=== PATIENT | female | born 1980 | race Caucasian/White ===

== ENCOUNTER 2018-08-22 10:51 | Inpatient (IN) ==
[~2018-08-22 10:51] MED LIST: PENICILLIN G POTASSIUM INJ 6,000,000 UNIT in SODIUM CHLORIDE 0.9% 100 ML IV ONE
[2018-08-22] MEDS ORDERED: BUTORPHANOL 2 MG/ML VIAL IV PRN (12:21)
[2018-08-22] MEDS ORDERED: DINOPROSTONE 10 MG VAG.INSERT VAG ONE (12:21)
[2018-08-22] MEDS ORDERED: ONDANSETRON 4 MG/2 ML VIAL IV PRN (12:21)
[2018-08-22] MEDS ORDERED: BUTORPHANOL 1 MG/ML VIAL IV PRN (12:21)
[2018-08-22] MEDS: LACTATED RINGERS 1,000 ML IV SCH ×2 (12:40→22:42)
[2018-08-22 12:53] LABS: Basophils % 0.2 % (0.0-0.8); Eosinophils % 0.2 % (0.00-10.9); Hematocrit 39.8 VOL% (35.7-47.0); Hemoglobin 13.5 GM/DL (12.0-16.0); Immature Granulocytes % 0.8 %; Immature Granulocytes Absolute 0.07 #; Lymphocytes # 1.4 10*3/uL (1.4-4.0); Mean Corpuscular HGB Conc 33.9 GM/DL (32-36); Mean Corpuscular Volume 92.1 FL (87-102); Mean Platelet Volume 10.7 FL (9.6-12.0); Monocytes % 5.8 % (1.7-12.7); Platelet Count 204 T/CUMM (130-400); Red Blood Count 4.32 MC/CUMM (3.8-5.5); Red Cell Distribution Width 12.7 % (9.3-17.3); White Blood Count 9.3 T/CUMM (4-12)
[2018-08-22 13:11] LABS: Alanine Aminotransferase 40 U/L (13-56); Albumin 2.9 G/DL (3.4-5.0); Alkaline Phosphatase 115 U/L (45-117); Aspartate Amino Transferase 37 U/L (0-37); Bilirubin,Total < 0.39 MG/DL (0.2-1.0); Blood Urea Nitrogen 7 MG/DL (7-18); Calcium 9.3 MG/DL (8.5-10.1); Glucose 98 MG/DL (74-106); Osmolality,Calculated 276.4 MOS/KG (273-304); Total Protein 6.7 G/DL (6.4-8.3); Uric Acid 3.2 MG/DL (2.6-6.0)
[2018-08-23] MEDS ORDERED: PENICILLIN G POTASSIUM INJ 6,000,000 UNIT in SODIUM CHLORIDE 0.9% 100 ML IV ONE
[2018-08-23] MEDS ORDERED: OXYTOCIN/LR 20 UNIT/1,000 ML BAG IV SCH (04:30)
[2018-08-23] MEDS: PENICILLIN G POTASSIUM INJ 3,000,000 UNIT in SODIUM CHLORIDE 0.9% 100 ML IV SCH ×4 (05:00→17:44)
[2018-08-23] MEDS: LACTATED RINGERS 1,000 ML IV SCH ×3 (06:42→18:29)
[2018-08-24] MEDS ORDERED: OXYTOCIN/LR 20 UNIT/1,000 ML BAG IV ONE ×3 (05:53→15:45)
[2018-08-24] MEDS: PENICILLIN G POTASSIUM INJ 3,000,000 UNIT in SODIUM CHLORIDE 0.9% 100 ML IV SCH (06:26)
[2018-08-24] MEDS ORDERED: OXYTOCIN/LR 20 UNIT/1,000 ML BAG IV SCH (06:30)
[2018-08-24] MEDS ORDERED: hydrOXYzine HCL 25 MG/1 ML VIAL IM PRN (09:01)
[2018-08-24] MEDS ORDERED: ePHEDrine 50 MG/ML AMP IV PRN (09:01)
[2018-08-24] MEDS ORDERED: diphenhydrAMINE 50 MG/1 ML VIAL IV PRN ×2 (09:01)
[2018-08-24] MEDS ORDERED: NALOXONE 0.4 MG/ML VIAL IV PRN (09:01)
[2018-08-24] MEDS ORDERED: PROMETHAZINE 25 MG/1 ML VIAL IM ONE (09:01)
[2018-08-24] MEDS ORDERED: FAMOTIDINE 20 MG/2 ML VIAL IV ONE (09:03)
[2018-08-24] MEDS ORDERED: CITRIC ACID/SODIUM CITRATE 30 ML UDCUP PO ONE (09:03)
[2018-08-24] MEDS ORDERED: fentaNYL 2 MCG/ROPIV 0.2% EPID 100 ML EPIDURAL SCH (09:30)
[2018-08-24] MEDS ORDERED: LIDOCAINE 1% 50 ML VIAL ONE (11:09)
[2018-08-24] MEDS ORDERED: miSOPROStol 200 MCG TABLET ONE (11:10)
[2018-08-24] MEDS ORDERED: METHYLERGONOVINE 0.2 MG/1 ML AMP ONE (11:10)
[2018-08-24 11:19] LABS: Apearance,Urine Slightly Hazy (Clear); Bacteria,Urine Occasional /HPF (Few); Bilirubin,Urine Negative (Negative); Blood, Urine Negative (Negative); Glucose,Urine (UA) Negative (Negative); Ketones,Urine 80 mg/dL (Negative); Mucus,Urine Moderate /LPF (Occasional); Nitrite,Urine Negative (Negative); Protein,Urine 100 MG/DL; RBC,Urine 1 /HPF (0-4); Squamous Epithelial Cell,Urine Occasional /HPF (0-10); Urine Color Yellow (Yellow); Urine Specific Gravity 1.027 (1.001-1.035); Urine Urobilinogen < 2.0 EU/DL (0.2-1.0); WBC,Urine 1 /HPF (0-6)
[2018-08-24] MEDS ORDERED: hydrALAZINE 20 MG/1 ML VIAL ONE (12:33)
[2018-08-24] MEDS ORDERED: hydrALAZINE 20 MG/1 ML VIAL IV ONE (13:08)
[2018-08-24] MEDS ORDERED: ONDANSETRON 4 MG/2 ML VIAL IV PRN (13:49)
[2018-08-24] MEDS ORDERED: BISACODYL 10 MG SUPP RECTAL PRN (13:49)
[2018-08-24] MEDS ORDERED: MAGNESIUM HYDROXIDE SUSP 30 ML UDCUP PO PRN (13:49)
[2018-08-24] MEDS ORDERED: LACTATED RINGERS 1,000 ML IV SCH (14:00)
[2018-08-24] MEDS: KETOROLAC 15 MG/1 ML VIAL IV SCH ×2 (15:35→20:38)
[2018-08-24] MEDS ORDERED: FAMOTIDINE 20 MG TABLET PO PRN (15:43)
[2018-08-24] MEDS ORDERED: DIPH/TET/ACEL PERT BOOSTER VACCINE 0.5 ML VIAL IM ONE (15:45)
[2018-08-24] MEDS ORDERED: oxyCODONE/ACETAMINOPHEN 5-325 MG TABLET PO PRN ×2 (15:45)
[2018-08-24] MEDS ORDERED: MEASLES/MUMPS/RUBELLA VACCINE 0.5 ML VIAL SUBCUT ONE (15:45)
[2018-08-24] MEDS ORDERED: HYDROCORTISONE 2.5% RECTAL CREAM 30 GM TUBE TOP PRN (15:45)
[2018-08-24] MEDS ORDERED: BENZOCAINE 20%/MENTHOL 0.5% SPRAY 56 GM CAN TOP PRN (15:45)
[2018-08-24] MEDS ORDERED: WITCH HAZEL PADS 100/JAR TOP PRN (15:45)
[2018-08-24] MEDS ORDERED: LANOLIN 50% CREAM 0.3 OZ TUBE TOP PRN (15:45)
[2018-08-24] MEDS: ACETAMINOPHEN 325 MG TABLET PO PRN (19:38)
[2018-08-24] MEDS: DOCUSATE SODIUM 100 MG CAPSULE PO SCH (22:22)
[2018-08-25] MEDS: KETOROLAC 15 MG/1 ML VIAL IV SCH ×2 (04:15→09:00)
[2018-08-25 06:32] LABS: Basophils % 0.3 % (0.0-0.8); Eosinophils % 0.3 % (0.00-10.9); Hematocrit 38.1 VOL% (35.7-47.0); Immature Granulocytes % 0.8 %; Immature Granulocytes Absolute 0.09 #; Lymphocytes # 1.8 10*3/uL (1.4-4.0); Lymphocytes % 15.4 % (21.3-54.2); Mean Corpuscular HGB Conc 34.1 GM/DL (32-36); Mean Corpuscular Volume 92.3 FL (87-102); Mean Platelet Volume 10.2 FL (9.6-12.0); Monocytes % 5.6 % (1.7-12.7); Neutrophils % 77.6 % (38.7-73.9); Platelet Count 182 T/CUMM (130-400); Red Blood Count 4.13 MC/CUMM (3.8-5.5); Red Cell Distribution Width 12.8 % (9.3-17.3); White Blood Count 11.6 T/CUMM (4-12)
[2018-08-25] MEDS: MULTIVITAMIN (PRENATAL) TABLET PO SCH (08:23)
[2018-08-25] MEDS: DOCUSATE SODIUM 100 MG CAPSULE PO SCH ×3 (08:23→21:05)
[2018-08-25] MEDS: ACETAMINOPHEN 325 MG TABLET PO PRN ×2 (13:47→19:21)
[2018-08-25] MEDS ORDERED: IBUPROFEN 800 MG TABLET PO PRN (21:00)
[2018-08-26] MEDS: ACETAMINOPHEN 325 MG TABLET PO PRN (06:23)
[2018-08-26 08:26] VITALS: BP 136/84
[2018-08-26] MEDS: DOCUSATE SODIUM 100 MG CAPSULE PO SCH (09:28)
[2018-08-26] MEDS: MULTIVITAMIN (PRENATAL) TABLET PO SCH (09:30)
== END 2018-08-26 13:25 | disposition home or self-care (01) | DRG 560 ==
LOC: N.LDOUT 10:51 → N.LD 10:57 → N.OB 08-24 15:43
PROVIDERS: ADMIT Obstetrics & Gynecology; ATTEND Obstetrics & Gynecology

== ENCOUNTER 2021-01-30 09:49 | Inpatient (IN) ==
[~2021-01-30 09:49] MED LIST changes: +ASPIRIN CHEW 81 MG TABLET PO ONE; +DEXAMETHASONE 10 MG/1 ML VIAL ONE; +LORazepam 2 MG/1 ML VIAL ONE; +NITROGLYCERIN SL 0.4 MG TABLET SL ONE; -PENICILLIN G POTASSIUM INJ 6,000,000 UNIT in SODIUM CHLORIDE 0.9% 100 ML IV ONE; +levETIRAcetam 500 MG/5 ML VIAL IV ONE
[2021-01-30] MEDS ORDERED: DEXAMETHASONE 4 MG/1 ML VIAL IV STA (12:30)
[2021-01-30] MEDS ORDERED: DEXAMETHASONE 10 MG/1 ML VIAL ONE (12:33)
[2021-01-30] MEDS ORDERED: DEXTROSE 50% 25 GM/50 ML SYRINGE IV PRN (13:04)
[2021-01-30] MEDS ORDERED: DOCUSATE SODIUM 100 MG CAPSULE PO PRN (13:04)
[2021-01-30] MEDS ORDERED: ALUMINUM/MAGNES/SIMETH MAX STR 30 ML UDCUP PO PRN (13:04)
[2021-01-30] MEDS ORDERED: hydrALAZINE 20 MG/1 ML VIAL IV PRN (13:04)
[2021-01-30] MEDS ORDERED: ACETAMINOPHEN 325 MG TABLET PO PRN (13:04)
[2021-01-30] MEDS ORDERED: GLUCAGON 1 MG VIAL IM PRN (13:04)
[2021-01-30] MEDS ORDERED: ONDANSETRON 4 MG/2 ML VIAL IV PRN (13:04)
[2021-01-30] MEDS ORDERED: DEXAMETHASONE 4 MG/1 ML VIAL IV SCH (13:30)
[2021-01-30] MEDS: SODIUM CHLORIDE 0.9% 1,000 ML IV SCH (13:30)
[2021-01-30] MEDS ORDERED: DEXAMETHASONE 4 MG/1 ML VIAL IM SCH (13:30)
[2021-01-30 13:59] LABS: Calcium 9.5 MG/DL (8.5-10.1); Potassium 3.8 MMOL/L (3.5-5.1)
[2021-01-30 14:42] LABS: Calcium 9.6 MG/DL (8.5-10.1); Osmolality,Calculated 275.7 MOS/KG (273-304); Potassium 3.6 MMOL/L (3.5-5.1)
[2021-01-30 16:26] LABS: Eosinophils % 0.7 % (0.00-10.9); Hematocrit 36.8 VOL% (35.7-47.0); Hemoglobin 12.7 GM/DL (12.0-16.0); Lymphocytes % 25.3 % (21.3-54.2); Mean Corpuscular HGB Conc 34.5 GM/DL (32-36); Mean Corpuscular Volume 94.6 FL (87-102); Mean Platelet Volume 8.9 FL (9.6-12.0); Monocytes % 7.3 % (1.7-12.7); Neutrophils % 66.3 % (38.7-73.9); Platelet Count 245 T/CUMM (130-400); Red Blood Count 3.89 MC/CUMM (3.8-5.5); Red Cell Distribution Width 12.6 % (9.3-17.3); White Blood Count 4.4 T/CUMM (4-12)
[2021-01-30 16:27] LABS: Basophils % 0.2 % (0.0-0.8); Immature Granulocytes % 0.2 %; Immature Granulocytes Absolute 0.01 #; Lymphocytes # 1.1 10*3/uL (1.4-4.0)
[2021-01-30 17:07] LABS: Thyroid Stimulating Hormone 0.731 uIU/ml (0.358-3.74)
[2021-01-30] MEDS: cefTRIAXone 1,000 MG in SODIUM CHLORIDE 0.9% 100 ML IV SCH (17:55)
[2021-01-30] MEDS: AZITHROMYCIN INJ 500 MG in SODIUM CHLORIDE 0.9% 250 ML IV SCH (18:00)
[2021-01-31] MEDS: SODIUM CHLORIDE 0.9% 1,000 ML IV SCH ×2 (01:24→05:36)
[2021-01-31 06:43] LABS: Hematocrit 36.1 VOL% (35.7-47.0); Hemoglobin 12.5 GM/DL (12.0-16.0); Immature Granulocytes % 0.7 %; Immature Granulocytes Absolute 0.04 #; Lymphocytes # 0.8 10*3/uL (1.4-4.0); Lymphocytes % 13.4 % (21.3-54.2); Mean Corpuscular HGB Conc 34.6 GM/DL (32-36); Mean Platelet Volume 8.9 FL (9.6-12.0); Monocytes % 5.2 % (1.7-12.7); Neutrophils % 80.7 % (38.7-73.9); Platelet Count 239 T/CUMM (130-400); Red Blood Count 3.76 MC/CUMM (3.8-5.5); Red Cell Distribution Width 12.2 % (9.3-17.3); White Blood Count 6.1 T/CUMM (4-12)
[2021-01-31 07:02] LABS: Albumin 3.7 G/DL (3.4-5.0); Bilirubin,Total 1.2 MG/DL (0.20-1.00); Calcium 9.4 MG/DL (8.5-10.1); Potassium 3.8 MMOL/L (3.5-5.1); Risk Ratio 3.91; VLDL Cholesterol 17.6 MG/DL
[2021-01-31] MEDS ORDERED: DEXAMETHASONE 10 MG/1 ML VIAL IV SCH (09:00)
[2021-01-31] MEDS: PANTOPRAZOLE 40 MG TABLET PO SCH (10:28)
[2021-01-31] MEDS: DEXAMETHASONE 4 MG TABLET PO SCH ×2 (16:00→20:44)
[2021-01-31] MEDS: cefTRIAXone 1,000 MG in SODIUM CHLORIDE 0.9% 100 ML IV SCH (16:00)
[2021-01-31] MEDS: AZITHROMYCIN INJ 500 MG in SODIUM CHLORIDE 0.9% 250 ML IV SCH (18:08)
[2021-02-01 06:50] LABS: Basophils % 0.1 % (0.0-0.8); Hematocrit 34.1 VOL% (35.7-47.0); Hemoglobin 11.7 GM/DL (12.0-16.0); Immature Granulocytes % 1.4 %; Immature Granulocytes Absolute 0.11 #; Lymphocytes # 1.3 10*3/uL (1.4-4.0); Mean Corpuscular HGB Conc 34.3 GM/DL (32-36); Monocytes % 5.5 % (1.7-12.7); Platelet Count 251 T/CUMM (130-400); Red Blood Count 3.59 MC/CUMM (3.8-5.5); Red Cell Distribution Width 12.2 % (9.3-17.3); White Blood Count 8.1 T/CUMM (4-12)
[2021-02-01 06:58] LABS: Calcium 9.2 MG/DL (8.5-10.1); Osmolality,Calculated 280.5 MOS/KG (273-304); Potassium 3.6 MMOL/L (3.5-5.1)
[2021-02-01] MEDS: LORazepam 2 MG/1 ML VIAL IV PRN ×2 (08:21→16:29)
[2021-02-01] MEDS: PANTOPRAZOLE 40 MG TABLET PO SCH (08:33)
[2021-02-01] MEDS: DEXAMETHASONE 4 MG TABLET PO SCH ×3 (08:33→21:02)
[2021-02-01] MEDS: SODIUM CHLORIDE 0.9% 1,000 ML IV SCH ×2 (10:04)
[2021-02-01] MEDS ORDERED: ZALEPLON 5 MG CAPSULE PO PRN (15:09)
[2021-02-01] MEDS ORDERED: ALBUTEROL/IPRATROPIUM 3 ML NEB RESP TX PRN (15:17)
[2021-02-01] MEDS: cefTRIAXone 1,000 MG in SODIUM CHLORIDE 0.9% 100 ML IV SCH (17:19)
[2021-02-01] MEDS: AZITHROMYCIN INJ 500 MG in SODIUM CHLORIDE 0.9% 250 ML IV SCH (18:35)
[2021-02-01] MEDS: ALBUTEROL/IPRATROPIUM 3 ML NEB RESP TX SCH (20:00)
[2021-02-02] MEDS: ALBUTEROL/IPRATROPIUM 3 ML NEB RESP TX SCH ×5 (01:00→19:55)
[2021-02-02 05:42] LABS: Basophils % 0.1 % (0.0-0.8); Hematocrit 32.2 VOL% (35.7-47.0); Hemoglobin 11.2 GM/DL (12.0-16.0); Immature Granulocytes % 1.1 %; Immature Granulocytes Absolute 0.08 #; Lymphocytes # 1.1 10*3/uL (1.4-4.0); Lymphocytes % 15.1 % (21.3-54.2); Mean Corpuscular HGB Conc 34.8 GM/DL (32-36); Mean Corpuscular Volume 94.2 FL (87-102); Mean Platelet Volume 9.1 FL (9.6-12.0); Monocytes % 7.1 % (1.7-12.7); Neutrophils % 76.6 % (38.7-73.9); Platelet Count 223 T/CUMM (130-400); Red Blood Count 3.42 MC/CUMM (3.8-5.5); Red Cell Distribution Width 12.4 % (9.3-17.3)
[2021-02-02 05:59] LABS: Calcium 8.5 MG/DL (8.5-10.1); Osmolality,Calculated 280.4 MOS/KG (273-304); Potassium 3.7 MMOL/L (3.5-5.1)
[2021-02-02] MEDS: SODIUM CHLORIDE 0.9% 1,000 ML IV SCH (06:41)
[2021-02-02] MEDS: PANTOPRAZOLE 40 MG TABLET PO SCH (10:40)
[2021-02-02] MEDS: DEXAMETHASONE 4 MG TABLET PO SCH ×3 (10:40→21:26)
[2021-02-02] MEDS: cefTRIAXone 1,000 MG in SODIUM CHLORIDE 0.9% 100 ML IV SCH (16:24)
[2021-02-02] MEDS: AZITHROMYCIN INJ 500 MG in SODIUM CHLORIDE 0.9% 250 ML IV SCH (17:42)
[2021-02-03] MEDS: ALBUTEROL/IPRATROPIUM 3 ML NEB RESP TX SCH ×3 (00:23→13:38)
[2021-02-03] MEDS: SODIUM CHLORIDE 0.9% 1,000 ML IV SCH ×3 (01:08→13:32)
[2021-02-03 07:12] LABS: Basophils % 0.2 % (0.0-0.8); Hemoglobin 11.3 GM/DL (12.0-16.0); Immature Granulocytes % 2.1 %; Immature Granulocytes Absolute 0.12 #; Lymphocytes # 0.7 10*3/uL (1.4-4.0); Lymphocytes % 12.7 % (21.3-54.2); Mean Corpuscular HGB Conc 34.2 GM/DL (32-36); Mean Corpuscular Volume 94.8 FL (87-102); Platelet Count 199 T/CUMM (130-400); Red Blood Count 3.48 MC/CUMM (3.8-5.5); Red Cell Distribution Width 12.2 % (9.3-17.3); White Blood Count 5.7 T/CUMM (4-12)
[2021-02-03 07:28] LABS: Calcium 8.8 MG/DL (8.5-10.1); Osmolality,Calculated 272.1 MOS/KG (273-304); Potassium 3.8 MMOL/L (3.5-5.1)
[2021-02-03] MEDS: DEXAMETHASONE 4 MG TABLET PO SCH ×2 (09:35→14:38)
[2021-02-03] MEDS: PANTOPRAZOLE 40 MG TABLET PO SCH (09:35)
[2021-02-03] MEDS ORDERED: INFLUENZA VIRUS VACCINE 0.5 ML SYRINGE IM ONE (11:23)
[2021-02-03 12:17] VITALS: BP 112/58
[2021-02-03] MEDS: cefTRIAXone 1,000 MG in SODIUM CHLORIDE 0.9% 100 ML IV SCH (13:33)
[2021-02-03] MEDS: AZITHROMYCIN INJ 500 MG in SODIUM CHLORIDE 0.9% 250 ML IV SCH (14:25)
== END 2021-02-03 16:56 | disposition home or self-care (01) | DRG 41 ==
LOC: N.ED 09:49 → N.EDINP 13:04 → N.2E 22:02
PROVIDERS: ADMIT Internal Medicine; ATTEND Internal Medicine

== ENCOUNTER 2021-03-09 09:09 | Observation (INO) ==
[2021-03-09 10:11] LABS: Basophils % 0.5 % (0.0-0.8); Hematocrit 45.3 VOL% (35.7-47.0); Hemoglobin 15.9 GM/DL (12.0-16.0); Immature Granulocytes % 8.2 %; Lymphocytes # 1.3 10*3/uL (1.4-4.0); Lymphocytes % 17.3 % (21.3-54.2); Mean Corpuscular HGB Conc 35.1 GM/DL (32-36); Mean Corpuscular Volume 90.1 FL (87-102); Mean Platelet Volume 8.7 FL (9.6-12.0); Monocytes % 4.5 % (1.7-12.7); NRBC # 0.07 10*3/uL; Neutrophils % 69.5 % (38.7-73.9); Platelet Count 161 T/CUMM (130-400); Red Blood Count 5.03 MC/CUMM (3.8-5.5); Red Cell Distribution Width 12.6 % (9.3-17.3); White Blood Count 7.4 T/CUMM (4-12)
[2021-03-09 10:31] LABS: Albumin 3.6 G/DL (3.4-5.0); Bilirubin,Total 0.7 MG/DL (0.20-1.00); Calcium 9.4 MG/DL (8.5-10.1); Osmolality,Calculated 267.8 MOS/KG (273-304); Total Protein 8.3 G/DL (6.4-8.2)
[2021-03-09] MEDS ORDERED: LORazepam 2 MG/1 ML VIAL IV STA (10:47)
[2021-03-09 11:11] LABS: Lymphocytes 12 % (20-55); Nucleated Red Blood Cells 1 (0-5); Segmented Neutrophils 82 % (50-85); Total Cells Counted 100
[2021-03-09 11:12] LABS: Platelet Estimate Adequate
[2021-03-09 11:18] LABS: Bilirubin,Urine Negative (Negative); Blood, Urine Negative (Negative); Glucose,Urine (UA) >=500 mg/dL (Negative); Ketones,Urine 20 mg/dL (Negative); Mucus,Urine Moderate /LPF (Occasional); Nitrite,Urine Negative (Negative); Protein,Urine Negative; RBC,Urine <1 /HPF (0-4); Squamous Epithelial Cell,Urine Occasional /HPF (0-10); Urine Appearance CLEAR (Clear); Urine Color Yellow (Yellow); Urine Specific Gravity 1.024 (1.001-1.035); Urine Urobilinogen < 2.0 EU/DL (<2.0)
[2021-03-09] MEDS ORDERED: GLUCAGON 1 MG VIAL IM PRN (12:25)
[2021-03-09] MEDS ORDERED: ONDANSETRON 4 MG/2 ML VIAL IV PRN (12:25)
[2021-03-09] MEDS ORDERED: DEXTROSE 50% 25 GM/50 ML SYRINGE IV PRN (12:25)
[2021-03-09] MEDS ORDERED: ACETAMINOPHEN 325 MG TABLET PO PRN (12:25)
[2021-03-09] MEDS ORDERED: LACTATED RINGERS 1,000 ML IV SCH (12:30)
[2021-03-09] MEDS ORDERED: PANTOPRAZOLE 40 MG TABLET PO SCH (13:00)
[2021-03-09] MEDS ORDERED: levETIRAcetam 500 MG TABLET PO SCH (13:00)
[2021-03-09] MEDS ORDERED: DEXAMETHASONE 4 MG TABLET PO SCH (13:00)
[2021-03-09] MEDS: PANTOPRAZOLE 40 MG VIAL IV SCH ×2 (17:05→21:09)
[2021-03-09] MEDS: DEXAMETHASONE 4 MG/1 ML VIAL IV SCH ×2 (17:05→21:09)
[2021-03-09] MEDS: LACTATED RINGERS 1,000 ML IV SCH ×2 (17:24→17:25)
[2021-03-09] MEDS ORDERED: LORazepam 2 MG/1 ML VIAL IV PRN (17:36)
[2021-03-10] MEDS: LACTATED RINGERS 1,000 ML IV SCH ×3 (02:00→14:25)
[2021-03-10 08:32] LABS: Basophils % 0.3 % (0.0-0.8); Hematocrit 36.6 VOL% (35.7-47.0); Immature Granulocytes % 6.8 %; Immature Granulocytes Absolute 0.48 #; Lymphocytes # 0.9 10*3/uL (1.4-4.0); Lymphocytes % 12.3 % (21.3-54.2); Mean Corpuscular HGB Conc 36.1 GM/DL (32-36); Mean Corpuscular Volume 89.7 FL (87-102); Monocytes % 4.3 % (1.7-12.7); NRBC # 0.02 10*3/uL; Neutrophils % 76.3 % (38.7-73.9); Platelet Count 135 T/CUMM (130-400); Red Blood Count 4.08 MC/CUMM (3.8-5.5); Red Cell Distribution Width 12.6 % (9.3-17.3); White Blood Count 7.1 T/CUMM (4-12)
[2021-03-10 08:34] LABS: Hemoglobin 13.2 GM/DL (12.0-16.0)
[2021-03-10 08:48] LABS: Lymphocytes 16 % (20-55); Nucleated Red Blood Cells 1 (0-5); Segmented Neutrophils 78 % (50-85); Total Cells Counted 100
[2021-03-10 08:49] LABS: Platelet Estimate Adequate
[2021-03-10 08:55] LABS: Albumin 2.6 G/DL (3.4-5.0); Bilirubin,Total 1.7 MG/DL (0.20-1.00); Calcium 8.4 MG/DL (8.5-10.1); Osmolality,Calculated 270.5 MOS/KG (273-304); Potassium 3.7 MMOL/L (3.5-5.1); Total Protein 6.4 G/DL (6.4-8.2)
[2021-03-10] MEDS: DEXAMETHASONE 4 MG/1 ML VIAL IV SCH ×2 (09:18→20:53)
[2021-03-10] MEDS: PANTOPRAZOLE 40 MG VIAL IV SCH ×2 (09:18→20:53)
[2021-03-11] MEDS: LACTATED RINGERS 1,000 ML IV SCH (01:11)
[2021-03-11] MEDS ORDERED: ALPRAZolam 0.25 MG TABLET PO PRN (08:58)
[2021-03-11] MEDS ORDERED: diphenhydrAMINE CAP 25 MG CAPSULE PO PRN (08:58)
[2021-03-11] MEDS ORDERED: traMADol 50 MG TABLET PO PRN (08:58)
[2021-03-11] MEDS ORDERED: TEMAZEPAM 7.5 MG CAPSULE PO PRN (08:58)
[2021-03-11] MEDS ORDERED: MYLANTA/LIDO VISC 2:1 300 ML BOTTLE SWISH/SPIT PRN (08:58)
[2021-03-11] MEDS ORDERED: LOPERAMIDE 2 MG CAPSULE PO PRN ×2 (08:58)
[2021-03-11] MEDS ORDERED: ALUMINUM/MAGNES/SIMETH MAX STR 30 ML UDCUP PO PRN (08:58)
[2021-03-11] MEDS ORDERED: guaiFENesin 200 MG/10 ML UDCUP PO PRN (08:58)
[2021-03-11] MEDS ORDERED: MYLANTA/LIDO VISC 2:1 300 ML BOTTLE SWISH/SWAL PRN (08:58)
[2021-03-11] MEDS ORDERED: ONDANSETRON 4 MG/2 ML VIAL IV PRN (08:58)
[2021-03-11] MEDS ORDERED: MAGNESIUM HYDROXIDE SUSP 30 ML UDCUP PO PRN (08:58)
[2021-03-11] MEDS ORDERED: PROMETHAZINE INJ 25 MG in SODIUM CHLORIDE 0.9% 50 ML IV PRN (08:58)
[2021-03-11] MEDS ORDERED: LACTULOSE 20 GM/30 ML UDCUP PO PRN (08:58)
[2021-03-11] MEDS: DEXAMETHASONE 4 MG/1 ML VIAL IV SCH (09:51)
[2021-03-11] MEDS: PANTOPRAZOLE 40 MG VIAL IV SCH (09:53)
[2021-03-11] MEDS ORDERED: DEXTROSE 10% 250 ML BAG IV PRN (11:00)
[2021-03-11 12:16] VITALS: BP 115/69
== END 2021-03-11 12:59 | disposition home or self-care (01) ==
LOC: N.ED 09:09 → SUATTDRO 12:25 → INTOOBSV 12:25 → N.EDINP 12:25 → N.TELES 14:02
PROVIDERS: ADMIT Internal Medicine; ATTEND Internal Medicine